=== PATIENT | male | born 1975 | race Caucasian/White ===

== ENCOUNTER 2017-06-25 16:53 | Emergency (ER) | payer MEDICAID ==
[~2017-06-25] VITALS: Ht 175.3 cm; Wt 84.1 kg
[~2017-06-25 16:53] MED LIST: BENZ0.5T6 PO; MIRT15 PO; PHENY100 PO; Quetiapine Fumarate PO; VENL75CA55 PO
[2017-06-25 17:22] VITALS: BP 154/94
[2017-06-25] MEDS ORDERED: KETOROLAC TROMETHAMINE 60 MG/2 ML VIAL IM ONE (18:30)
[2017-06-25] MEDS ORDERED: CYCLOBENZAPRINE HCL 10 MG TABLET PO ONE (18:30)
== END 2017-06-25 18:59 | disposition home or self-care (01) ==
LOC: EMS 16:55
DX: S39.012A Strain of muscle, fascia and tendon of lower back, initial encounter (principal); R07.1 Chest pain on breathing; F12.90 Cannabis use, unspecified, uncomplicated; F19.90 Other psychoactive substance use, unspecified, uncomplicated; F11.90 Opioid use, unspecified, uncomplicated; X58.XXXA Exposure to other specified factors, initial encounter; Y93.89 Activity, other specified; Y92.89 Other specified places as the place of occurrence of the external cause; Y99.8 Other external cause status
CPT/HCPCS: 96372; 99283; J1885

== ENCOUNTER 2017-06-29 11:10 | Emergency (ER) | payer MEDICAID ==
[~2017-06-29] VITALS: Ht 175.3 cm; Wt 84.1 kg
[2017-06-29] MEDS ORDERED: OLANZapine 5 MG TABLET ONE (13:25)
[2017-06-29] MEDS ORDERED: HYDROCODONE/ACETAMINOPHEN 5-325 MG TABLET PO ONE (14:15)
[2017-06-29] MEDS ORDERED: KETOROLAC TROMETHAMINE 60 MG/2 ML VIAL IM ONE (14:15)
[2017-06-29 16:26] VITALS: BP 119/76
== END 2017-06-29 16:33 | disposition home or self-care (01) ==
LOC: EMS 11:11
DX: S33.5XXA Sprain of ligaments of lumbar spine, initial encounter (principal); S23.3XXA Sprain of ligaments of thoracic spine, initial encounter; R07.81 Pleurodynia; F11.90 Opioid use, unspecified, uncomplicated; F12.90 Cannabis use, unspecified, uncomplicated; F15.90 Other stimulant use, unspecified, uncomplicated; X50.0XXA Overexertion from strenuous movement or load, initial encounter; Y93.89 Activity, other specified; Y92.89 Other specified places as the place of occurrence of the external cause; Y99.8 Other external cause status
CPT/HCPCS: 71101; 72072; 72100; 96372; 99284; J1885